=== PATIENT | male | born 1975 | race Caucasian/White ===

== ENCOUNTER 2022-03-17 00:33 | Emergency (ER) | payer MEDICARE ==
[2022-03-17 01:53] LABS: BASOPHIL 0.6 % (0-2); EOSINOPHIL 0.8 % (0-5); HCT 44.5 % (42.0-52.0); HGB 14.5 g/dl (13.2-18.0); LYMPHOCYTE 15.2 % (15-48); MCH 30.3 pg (25.0-31.0); MCHC 32.6 g/dL (32.0-36.0); MCV 93.1 fL (78.0-100.0); MONOCYTE 5.7 % (0-12); MPV 9.7 fL (6.0-9.5); NEUTROPHIL 77.2 % (41-80); NRBC 0; PLT 188 K/uL (150-400); RBC 4.78 M/uL (4.70-6.00); RDW 12.8 % (11.5-14.0); WBC 14.3 K/uL (4.0-10.5)
[2022-03-17 02:09] LABS: ALBUMIN 3.8 g/dL (3.4-5.0); ALKALINE PHOSHATASE 70 U/L (46-116); ALT 35 U/L (16-63); AST 26 U/L (15-37); BILIRUBIN - TOTAL 0.4 mg/dL (0.2-1.0); BUN 25 mg/dL (7-18); BUN/CREAT RATIO (CALC) 17.6 RATIO; CHLORIDE 104 mmol/L (98-107); CO2 (BICARBONATE) 26 mmol/L (21-32); CREATININE 1.42 mg/dL (0.67-1.17); GLOBULIN (CALCULATION) 3.4 g/dL; GLUCOSE 108 mg/dL (74-106); LIPASE 172 U/L (73-393); MAGNESIUM 2.2 mg/dL (1.8-2.4); POTASSIUM 4.1 mmol/L (3.5-5.1); TOTAL PROTEIN 7.2 g/dL (6.4-8.2)
[2022-03-17 04:23] LABS: BILIRUBIN NEGATIVE (NEGATIVE); BLOOD TRACE-INTACT Ery/uL (NEGATIVE); CLARITY CLEAR (CLEAR); COLOR YELLOW (YELLOW); GLUCOSE (U) NORMAL (NORMAL); LEUKOCYTES NEGATIVE Leu/uL (NEGATIVE); NITRITE NEGATIVE (NEGATIVE); PROTEIN NEGATIVE (NEGATIVE); SPECIFIC GRAVITY 1.015 (1.001-1.030); UROBILINOGEN 0.2 mg/dL (0.2-1.0)
[2022-03-17 04:26] LABS: SQUAMOUS EPITHELIAL CELLS RARE
[2022-03-17] MEDS ORDERED: NORCO 5-325 TA1 EACH PO (05:26)
[2022-03-17] MEDS ORDERED: ONDANSETRON ODT4 MG PO (05:26)
[2022-03-17] MEDS ORDERED: FLOMAX0.4 MG PO (05:26)
[2022-03-17] MEDS ORDERED: NAPROXEN500 MG PO (05:26)
== END 2022-03-17 06:00 | disposition home or self-care (01) ==
LOC: FER 00:33
PROVIDERS: Emergency Medicine
DX: N13.2 Hydronephrosis with renal and ureteral calculous obstruction (principal); Z28.310 Unvaccinated for COVID-19
CPT/HCPCS: 36415; 80053; 81001; 83690; 83735; 84145; 85025; G0480; J1170; J2405; Q9967